=== PATIENT | female | born 1985 | race Caucasian/White ===

== ENCOUNTER 2018-08-17 23:38 | Inpatient (IN) | payer BC, OTHER ==
[2018-08-18] MEDS ORDERED: PIPER-TAZO 3.375 GM IV (PMX) 100 ML (00:54)
[2018-08-18] MEDS: DEXTROSE 5%-0.45% NACL 1,000 ML IV ×3 (00:57→16:02)
[2018-08-18] MEDS: PIPER-TAZO 3.375 GM IV (PMX) 100 ML IVPB ×5 (00:57→23:28)
[2018-08-18] MEDS ORDERED: morphine 2 MG INJ IV (01:00)
[2018-08-18 05:38] LABS: ADD MAN DIFF? NO
[2018-08-18 05:44] LABS: WHITE BLOOD COUNT 8.3 10^3/ul (4.8-10.8)
[2018-08-18 05:44] LABS: BASOPHIL # 0.1 10^3/ul (0.0-0.1); BASOPHILS % 0.6 % (0.0-2.0); EOSINOPHILS # 0.2 10^3/ul (0.0-0.5); EOSINOPHILS % 2.4 % (0.0-7.0); HEMATOCRIT 39.7 % (37.0-47.0); HEMOGLOBIN 13.2 g/dl (12.0-16.0); LYMPHOCYTES # 2.9 10^3/ul (0.8-2.9); LYMPHOCYTES % 34.4 % (15.0-51.0); MEAN CORPUSCULAR HEMOGLOBIN 28.5 pg (29.0-33.0); MEAN CORPUSCULAR HGB CONC 33.2 g/dl (32.0-37.0); MEAN CORPUSCULAR VOLUME 85.7 fl (82.0-101.0); MEAN PLATELET VOLUME 9.6 fl (7.4-10.4); MONOCYTE # 0.6 10^3/ul (0.3-0.9); MONOCYTES % 7.5 % (0.0-11.0); NEUTROPHIL # 4.5 10^3/ul (1.6-7.5); NEUTROPHILS % 54.7 % (39.0-77.0); PLATELET COUNT 316 10^3/UL (140-415); RED BLOOD COUNT 4.63 10^6/ul (4.20-5.40); RED CELL DISTRIBUTION WIDTH 12.6 % (11.5-14.5)
[2018-08-18 06:26] LABS: ALBUMIN/GLOBULIN RATIO 1.27; ANION GAP 12 (8-16); BILIRUBIN,TOTAL 0.3 mg/dl (0.2-1.3)
[2018-08-18 06:27] LABS: CARBON DIOXIDE 28 mmol/L (21-31); CHLORIDE 108 mmol/L (97-110); POTASSIUM 3.8 mmol/L (3.5-5.1); SODIUM 144 mmol/L (135-144)
[2018-08-18 06:28] LABS: ALANINE AMINOTRANSFERASE 28 IU/L (13-69); ALBUMIN 3.7 g/dl (3.3-4.9); ALKALINE PHOSPHATASE 78 IU/L (42-121); ASPARTATE AMINO TRANSFERASE 24 IU/L (15-46); BILIRUBIN,INDIRECT 0.3 mg/dl (0-1.1); BLOOD UREA NITROGEN 11 mg/dl (7-20); CALCIUM 8.4 mg/dl (8.4-10.2); CREATININE 0.81 mg/dl (0.44-1.00); GLUCOSE 115 mg/dl (70-220); TOTAL PROTEIN 6.6 g/dl (6.1-8.1)
[2018-08-18] MEDS ORDERED: NACL 0.9% 3 ML SYG IV (07:30)
[2018-08-18] MEDS: SOD CHLORIDE 0.9% 500 ML IV (08:49)
[2018-08-18] MEDS: FAMOTIDINE 20 MG INJ IV ×2 (08:49→20:28)
[2018-08-18] MEDS ORDERED: HYDROmorphONE 2 MG/ML SYG IV (10:00)
[2018-08-18] MEDS ORDERED: PANTOPRAZOLE 40 MG INJ IV (10:30)
[2018-08-18 10:49] LABS: LIPASE 46 U/L (23-300)
[2018-08-18] MEDS: KETOROLAC 15 MG INJ IV ×2 (11:52→20:34)
[2018-08-18 13:15] LABS: ADD UMIC YES; UR ASCORBIC ACID NEGATIVE (NEGATIVE); UR BILIRUBIN (Dip) NEGATIVE (NEGATIVE); UR BLOOD (Dip) NEGATIVE (NEGATIVE); UR CLARITY CLEAR (CLEAR); UR COLOR STRAW (YELLOW); UR GLUCOSE (Dip) NEGATIVE (NEGATIVE); UR KETONES (Dip) NEGATIVE (NEGATIVE); UR LEUKOCYTE ESTERASE (Dip) 1+ Leu/ul (NEGATIVE); UR NITRITE (Dip) NEGATIVE (NEGATIVE); UR RBC 1 /HPF (0-5); UR SPECIFIC GRAVITY (Dip) 1.009 (1.003-1.030); UR SQUAMOUS EPITHELIAL CELL FEW /HPF (FEW); UR TOTAL PROTEIN (Dip) NEGATIVE (NEGATIVE); UR UROBILINOGEN (Dip) NEGATIVE (NEGATIVE); UR WBC 8 /HPF (0-5)
[2018-08-19] MEDS: PIPER-TAZO 3.375 GM IV (PMX) 100 ML IVPB ×4 (05:05→23:57)
[2018-08-19] MEDS: DEXTROSE 5%-0.45% NACL 1,000 ML IV ×2 (05:05→16:12)
[2018-08-19 06:07] LABS: ADD MAN DIFF? NO
[2018-08-19 06:14] LABS: WHITE BLOOD COUNT 6.6 10^3/ul (4.8-10.8)
[2018-08-19 06:14] LABS: BASOPHIL # 0.1 10^3/ul (0.0-0.1); BASOPHILS % 0.9 % (0.0-2.0); EOSINOPHILS # 0.3 10^3/ul (0.0-0.5); EOSINOPHILS % 3.9 % (0.0-7.0); HEMATOCRIT 35.9 % (37.0-47.0); LYMPHOCYTES # 2.7 10^3/ul (0.8-2.9); LYMPHOCYTES % 40.8 % (15.0-51.0); MEAN CORPUSCULAR HEMOGLOBIN 28.4 pg (29.0-33.0); MEAN CORPUSCULAR HGB CONC 33.4 g/dl (32.0-37.0); MEAN CORPUSCULAR VOLUME 85.1 fl (82.0-101.0); MEAN PLATELET VOLUME 9.7 fl (7.4-10.4); MONOCYTE # 0.5 10^3/ul (0.3-0.9); MONOCYTES % 7.6 % (0.0-11.0); NEUTROPHIL # 3.1 10^3/ul (1.6-7.5); NEUTROPHILS % 46.6 % (39.0-77.0); PLATELET COUNT 310 10^3/UL (140-415); RED BLOOD COUNT 4.22 10^6/ul (4.20-5.40); RED CELL DISTRIBUTION WIDTH 12.4 % (11.5-14.5)
[2018-08-19 06:37] LABS: CHOLESTEROL 114 mg/dl (100-200)
[2018-08-19 06:37] LABS: CHOL/HDL RATIO 3.5 RATIO; HDL CHOLESTEROL 32 mg/dl (34-82); LDL CHOLESTEROL,CALCULATED 55 mg/dl; TRIGLYCERIDES 134 mg/dl (0-149)
[2018-08-19 06:44] LABS: ALANINE AMINOTRANSFERASE 57 IU/L (13-69); ALBUMIN/GLOBULIN RATIO 1.03; ALKALINE PHOSPHATASE 67 IU/L (42-121); ANION GAP 11 (8-16); ASPARTATE AMINO TRANSFERASE 39 IU/L (15-46); BILIRUBIN,INDIRECT 0.7 mg/dl (0-1.1); BILIRUBIN,TOTAL 0.7 mg/dl (0.2-1.3); BLOOD UREA NITROGEN 7 mg/dl (7-20); CALCIUM 8.4 mg/dl (8.4-10.2); CARBON DIOXIDE 26 mmol/L (21-31); CHLORIDE 108 mmol/L (97-110); CREATININE 0.83 mg/dl (0.44-1.00); GLUCOSE 100 mg/dl (70-220); MAGNESIUM 2.2 mg/dl (1.7-2.5); PHOSPHORUS 3.3 mg/dl (2.5-4.9); POTASSIUM 3.6 mmol/L (3.5-5.1); SODIUM 141 mmol/L (135-144); TOTAL PROTEIN 5.9 g/dl (6.1-8.1)
[2018-08-19 06:57] LABS: THYROID STIMULATING HORMONE 0.617 MIU/L (0.465-4.680)
[2018-08-19 06:58] LABS: HEMOGLOBIN A1C 5.7 % (0-5.9)
[2018-08-19] MEDS: KETOROLAC 15 MG INJ IV ×2 (07:46→20:08)
[2018-08-19] MEDS: FAMOTIDINE 20 MG INJ IV ×2 (08:36→21:16)
[2018-08-19 14:56] LABS: INR 0.99; PROTIME 13.2 Sec (11.9-14.9)
[2018-08-19] MEDS ORDERED: IOHEXOL 300MG/ML 30 ML BTL (17:39)
[2018-08-19] MEDS ORDERED: LIDOCAINE 2% (SDV) 5 ML INJ (18:26)
[2018-08-19] MEDS ORDERED: GLYCOPYRROLATE 0.4 MG INJ (18:26)
[2018-08-19] MEDS ORDERED: NEOSTIGMINE 3 MG/3 ML SYRINGE (18:26)
[2018-08-19] MEDS ORDERED: PROPOFOL 20 ML (18:26)
[2018-08-19] MEDS ORDERED: ROCURONIUM 50 MG INJ (18:26)
[2018-08-19] MEDS ORDERED: SUCCINYLCHOLINE CHLORIDE 100 MG/5 ML SYG IV (18:26)
[2018-08-19] MEDS ORDERED: FENTAnyl 50 MCG/ML VIAL IV ×2 (18:30)
[2018-08-19] MEDS: INDOMETHACIN 50 MG SUPP PR (18:47)
[2018-08-19] MEDS ORDERED: METOCLOPRAMIDE 10 MG INJ (19:11)
[2018-08-19] MEDS ORDERED: ONDANSETRON 4 MG INJ (19:11)
[2018-08-19] MEDS: FENTAnyl 50 MCG/ML VIAL IV ×2 (19:52→19:59)
[2018-08-19] MEDS: ONDANSETRON 4 MG INJ IV (22:55)
[2018-08-19] MEDS: KETOROLAC 30 MG INJ IV (23:57)
[2018-08-20] MEDS: DEXTROSE 5%-0.45% NACL 1,000 ML IV ×3 (03:00→20:09)
[2018-08-20] MEDS ORDERED: KETOROLAC 15 MG INJ IV (04:00)
[2018-08-20 05:13] LABS: ADD MAN DIFF? NO; BASOPHILS % 0.3 % (0.0-2.0); EOSINOPHILS # 0.1 10^3/ul (0.0-0.5); EOSINOPHILS % 0.7 % (0.0-7.0); HEMATOCRIT 39.1 % (37.0-47.0); HEMOGLOBIN 13.4 g/dl (12.0-16.0); LYMPHOCYTES # 1.7 10^3/ul (0.8-2.9); LYMPHOCYTES % 16.7 % (15.0-51.0); MEAN CORPUSCULAR HEMOGLOBIN 27.9 pg (29.0-33.0); MEAN CORPUSCULAR HGB CONC 34.3 g/dl (32.0-37.0); MEAN CORPUSCULAR VOLUME 81.5 fl (82.0-101.0); MEAN PLATELET VOLUME 9.3 fl (7.4-10.4); MONOCYTE # 0.7 10^3/ul (0.3-0.9); MONOCYTES % 6.9 % (0.0-11.0); NEUTROPHIL # 7.5 10^3/ul (1.6-7.5); NEUTROPHILS % 75.1 % (39.0-77.0); PLATELET COUNT 336 10^3/UL (140-415)
[2018-08-20 05:44] LABS: ALANINE AMINOTRANSFERASE 51 IU/L (13-69); ALBUMIN 3.8 g/dl (3.3-4.9); ALBUMIN/GLOBULIN RATIO 1.22; ALKALINE PHOSPHATASE 79 IU/L (42-121); ANION GAP 12 (8-16); ASPARTATE AMINO TRANSFERASE 36 IU/L (15-46); BILIRUBIN,INDIRECT 0.7 mg/dl (0-1.1); BILIRUBIN,TOTAL 0.7 mg/dl (0.2-1.3); CALCIUM 8.6 mg/dl (8.4-10.2); CARBON DIOXIDE 25 mmol/L (21-31); CHLORIDE 107 mmol/L (97-110); GLUCOSE 130 mg/dl (70-220); POTASSIUM 4.1 mmol/L (3.5-5.1); SODIUM 140 mmol/L (135-144); TOTAL PROTEIN 6.9 g/dl (6.1-8.1)
[2018-08-20 05:46] LABS: BLOOD UREA NITROGEN 7 mg/dl (7-20)
[2018-08-20] MEDS: KETOROLAC 30 MG INJ IV ×2 (06:14→12:30)
[2018-08-20] MEDS: PIPER-TAZO 3.375 GM IV (PMX) 100 ML IVPB ×4 (06:14→23:15)
[2018-08-20] MEDS: FISH OIL 1,000 MG CAP PO ×2 (08:37→20:07)
[2018-08-20] MEDS: FAMOTIDINE 20 MG INJ IV ×2 (08:38→20:07)
[2018-08-20] MEDS: HYDROmorphONE 1 MG/ML SYG IV (14:42)
[2018-08-20] MEDS: HYDROmorphONE 2 MG/ML SYG IV ×2 (17:35→20:35)
[2018-08-21] MEDS: HYDROmorphONE 2 MG/ML SYG IV ×6 (00:31→22:35)
[2018-08-21] MEDS: PIPER-TAZO 3.375 GM IV (PMX) 100 ML IVPB ×4 (05:06→23:35)
[2018-08-21 05:39] LABS: ADD MAN DIFF? NO
[2018-08-21 05:41] LABS: BASOPHILS % 0.2 % (0.0-2.0); EOSINOPHILS % 0.2 % (0.0-7.0); HEMATOCRIT 38.2 % (37.0-47.0); HEMOGLOBIN 12.9 g/dl (12.0-16.0); LYMPHOCYTES % 7.6 % (15.0-51.0); MEAN CORPUSCULAR HEMOGLOBIN 27.9 pg (29.0-33.0); MEAN CORPUSCULAR HGB CONC 33.8 g/dl (32.0-37.0); MEAN CORPUSCULAR VOLUME 82.7 fl (82.0-101.0); MEAN PLATELET VOLUME 9.4 fl (7.4-10.4); MONOCYTE # 0.8 10^3/ul (0.3-0.9); MONOCYTES % 6.3 % (0.0-11.0); NEUTROPHIL # 11.1 10^3/ul (1.6-7.5); NEUTROPHILS % 85.4 % (39.0-77.0); PLATELET COUNT 310 10^3/UL (140-415); RED BLOOD COUNT 4.62 10^6/ul (4.20-5.40); RED CELL DISTRIBUTION WIDTH 12.4 % (11.5-14.5)
[2018-08-21 05:41] LABS: WHITE BLOOD COUNT 12.9 10^3/ul (4.8-10.8)
[2018-08-21 06:04] LABS: ALANINE AMINOTRANSFERASE 46 IU/L (13-69); ALBUMIN 3.7 g/dl (3.3-4.9); ALBUMIN/GLOBULIN RATIO 1.19; ALKALINE PHOSPHATASE 78 IU/L (42-121); ANION GAP 11 (8-16); ASPARTATE AMINO TRANSFERASE 29 IU/L (15-46); BILIRUBIN,INDIRECT 0.6 mg/dl (0-1.1); BILIRUBIN,TOTAL 0.6 mg/dl (0.2-1.3); BLOOD UREA NITROGEN 6 mg/dl (7-20); CALCIUM 8.1 mg/dl (8.4-10.2); CARBON DIOXIDE 26 mmol/L (21-31); CHLORIDE 103 mmol/L (97-110); CREATININE 0.62 mg/dl (0.44-1.00); GLUCOSE 128 mg/dl (70-220); POTASSIUM 4.4 mmol/L (3.5-5.1); SODIUM 136 mmol/L (135-144); TOTAL PROTEIN 6.8 g/dl (6.1-8.1)
[2018-08-21] MEDS: ONDANSETRON 4 MG INJ IV (06:15)
[2018-08-21] MEDS: DEXTROSE 5%-0.45% NACL 1,000 ML IV ×2 (08:18→18:51)
[2018-08-21] MEDS: FAMOTIDINE 20 MG INJ IV ×2 (08:18→20:16)
[2018-08-21] MEDS: FISH OIL 1,000 MG CAP PO ×2 (08:18→21:00)
[2018-08-21 14:39] LABS: CANCER ANTIGEN 19-9 7.1 U/ml (0.0-37.0)
[2018-08-22] MEDS: HYDROmorphONE 2 MG/ML SYG IV ×3 (03:19→12:06)
[2018-08-22] MEDS: DEXTROSE 5%-0.45% NACL 1,000 ML IV ×2 (05:21→17:37)
[2018-08-22] MEDS: PIPER-TAZO 3.375 GM IV (PMX) 100 ML IVPB ×3 (05:30→17:37)
[2018-08-22 05:54] LABS: ADD MAN DIFF? NO
[2018-08-22 05:59] LABS: BASOPHILS % 0.1 % (0.0-2.0); EOSINOPHILS # 0.2 10^3/ul (0.0-0.5); EOSINOPHILS % 1.2 % (0.0-7.0); HEMATOCRIT 35.1 % (37.0-47.0); HEMOGLOBIN 11.7 g/dl (12.0-16.0); LYMPHOCYTES % 7.4 % (15.0-51.0); MEAN CORPUSCULAR HGB CONC 33.3 g/dl (32.0-37.0); MEAN PLATELET VOLUME 9.5 fl (7.4-10.4); MONOCYTE # 1.1 10^3/ul (0.3-0.9); MONOCYTES % 7.7 % (0.0-11.0); NEUTROPHIL # 11.5 10^3/ul (1.6-7.5); NEUTROPHILS % 83.2 % (39.0-77.0); PLATELET COUNT 267 10^3/UL (140-415); RED BLOOD COUNT 4.18 10^6/ul (4.20-5.40); RED CELL DISTRIBUTION WIDTH 12.7 % (11.5-14.5)
[2018-08-22 05:59] LABS: WHITE BLOOD COUNT 13.8 10^3/ul (4.8-10.8)
[2018-08-22 06:26] LABS: ALANINE AMINOTRANSFERASE 40 IU/L (13-69); ALBUMIN 3.2 g/dl (3.3-4.9); ALBUMIN/GLOBULIN RATIO 1.18; ALKALINE PHOSPHATASE 77 IU/L (42-121); ANION GAP 9 (8-16); ASPARTATE AMINO TRANSFERASE 22 IU/L (15-46); BILIRUBIN,INDIRECT 0.7 mg/dl (0-1.1); BILIRUBIN,TOTAL 0.7 mg/dl (0.2-1.3); BLOOD UREA NITROGEN 3 mg/dl (7-20); CARBON DIOXIDE 27 mmol/L (21-31); CHLORIDE 105 mmol/L (97-110); CREATININE 0.69 mg/dl (0.44-1.00); GLUCOSE 119 mg/dl (70-220); LIPASE 591 U/L (23-300); POTASSIUM 3.2 mmol/L (3.5-5.1); SODIUM 138 mmol/L (135-144); TOTAL PROTEIN 5.9 g/dl (6.1-8.1)
[2018-08-22] MEDS: FAMOTIDINE 20 MG INJ IV ×2 (08:33→20:30)
[2018-08-22] MEDS: FISH OIL 1,000 MG CAP PO ×2 (08:34→21:00)
[2018-08-22] MEDS: DOCUSATE SODIUM 250 MG CAP PO (14:58)
[2018-08-22] MEDS: POTASSIUM CHLORIDE (SR) 20 MEQ TAB PO (14:59)
[2018-08-22] MEDS: POTASSIUM CHLORIDE 100 ML IVPB (17:37)
[2018-08-22] MEDS: HYDROmorphONE 1 MG/ML SYG IV ×2 (20:31→23:56)
[2018-08-23] MEDS: DEXTROSE 5%-0.45% NACL 1,000 ML IV ×3 (01:00→22:55)
[2018-08-23] MEDS: HYDROmorphONE 1 MG/ML SYG IV ×4 (03:18→22:47)
[2018-08-23 05:07] LABS: ADD MAN DIFF? NO
[2018-08-23 05:09] LABS: WHITE BLOOD COUNT 14.4 10^3/ul (4.8-10.8)
[2018-08-23 05:09] LABS: BASOPHILS % 0.3 % (0.0-2.0); EOSINOPHILS # 0.2 10^3/ul (0.0-0.5); EOSINOPHILS % 1.5 % (0.0-7.0); HEMATOCRIT 33.8 % (37.0-47.0); HEMOGLOBIN 11.5 g/dl (12.0-16.0); LYMPHOCYTES # 1.7 10^3/ul (0.8-2.9); MEAN CORPUSCULAR HEMOGLOBIN 28.1 pg (29.0-33.0); MEAN CORPUSCULAR VOLUME 82.6 fl (82.0-101.0); MEAN PLATELET VOLUME 9.3 fl (7.4-10.4); MONOCYTE # 1.2 10^3/ul (0.3-0.9); NEUTROPHIL # 11.2 10^3/ul (1.6-7.5); NEUTROPHILS % 77.7 % (39.0-77.0); PLATELET COUNT 275 10^3/UL (140-415); RED BLOOD COUNT 4.09 10^6/ul (4.20-5.40); RED CELL DISTRIBUTION WIDTH 12.6 % (11.5-14.5)
[2018-08-23] MEDS: PIPER-TAZO 3.375 GM IV (PMX) 100 ML IVPB ×4 (05:35→18:00)
[2018-08-23 05:36] LABS: ALANINE AMINOTRANSFERASE 32 IU/L (13-69); ALBUMIN 3.2 g/dl (3.3-4.9); ALKALINE PHOSPHATASE 92 IU/L (42-121); ANION GAP 9 (8-16); ASPARTATE AMINO TRANSFERASE 18 IU/L (15-46); BILIRUBIN,INDIRECT 0.8 mg/dl (0-1.1); BILIRUBIN,TOTAL 0.8 mg/dl (0.2-1.3); CALCIUM 8.2 mg/dl (8.4-10.2); CARBON DIOXIDE 26 mmol/L (21-31); CHLORIDE 107 mmol/L (97-110); CREATININE 0.61 mg/dl (0.44-1.00); GLUCOSE 120 mg/dl (70-220); POTASSIUM 3.3 mmol/L (3.5-5.1); SODIUM 139 mmol/L (135-144); TOTAL PROTEIN 6.1 g/dl (6.1-8.1)
[2018-08-23 05:43] LABS: BLOOD UREA NITROGEN < 2 mg/dl (7-20)
[2018-08-23] MEDS ORDERED: LIDOCAINE 2% (SDV) 5 ML INJ (07:00)
[2018-08-23] MEDS: FISH OIL 1,000 MG CAP PO ×2 (09:00→21:00)
[2018-08-23] MEDS: DOCUSATE SODIUM 250 MG CAP PO (09:54)
[2018-08-23] MEDS: FAMOTIDINE 20 MG INJ IV ×2 (09:54→21:22)
[2018-08-23] MEDS: POTASSIUM CHLORIDE 100 ML IVPB ×2 (14:28→21:22)
[2018-08-23 15:40] LABS: LIPASE 197 U/L (23-300)
[2018-08-23] MEDS ORDERED: PROPOFOL 100 ML (18:16)
[2018-08-23] MEDS ORDERED: ROCURONIUM 50 MG INJ (18:16)
[2018-08-23] MEDS ORDERED: ACETAMINOPHEN 1000MG/100ML IV 100 ML (18:16)
[2018-08-23] MEDS: BUPIVACAINE 0.25%/EPI (SDV) 30 ML INJ (18:36)
[2018-08-23] MEDS: LIDOCAINE 1% (MDV) 20 ML INJ (18:37)
[2018-08-23] MEDS ORDERED: ONDANSETRON 4 MG INJ (18:47)
[2018-08-23] MEDS ORDERED: DEXAMETHASONE 4 MG/ML 1 ML INJ (18:47)
[2018-08-23] MEDS ORDERED: SUGAMMADEX SODIUM 200 MG/2 ML VIAL IV (19:27)
[2018-08-23] MEDS ORDERED: METOCLOPRAMIDE 10 MG INJ IV (20:00)
[2018-08-23] MEDS ORDERED: hydrALAzine 20 MG INJ IV (20:00)
[2018-08-23] MEDS ORDERED: FENTAnyl 50 MCG/ML VIAL IV ×3 (20:00)
[2018-08-23] MEDS ORDERED: HYDROmorphONE 1 MG/5 ML IV SYRINGE IV (20:00)
[2018-08-23] MEDS ORDERED: EPHEDrine SULFATE 50 MG/5 ML SYG IV (20:00)
[2018-08-23] MEDS ORDERED: OXYCODONE/ACETAMINOPHEN (5/325) TAB PO ×2 (20:00)
[2018-08-23] MEDS ORDERED: DIPHENHYDRAMINE 50 MG INJ IV (20:00)
[2018-08-23] MEDS ORDERED: ALBUTEROL 0.083% (NEB) 2.5 MG/3 ML AMP HHN (20:00)
[2018-08-23] MEDS ORDERED: MIDAZOLAM 1 MG/ML 2 ML INJ IV (20:00)
[2018-08-23] MEDS ORDERED: LABETALOL HCL 20MG INJ IV (20:00)
[2018-08-23] MEDS ORDERED: MEPERIDINE 25 MG INJ IV (20:00)
[2018-08-23] MEDS ORDERED: KETOROLAC 30 MG INJ IV (20:00)
[2018-08-23] MEDS: HYDROmorphONE 1 MG/5 ML IV SYRINGE IV ×2 (20:07→20:27)
[2018-08-23] MEDS: ONDANSETRON 4 MG INJ IV (20:19)
[2018-08-24] MEDS: PIPER-TAZO 3.375 GM IV (PMX) 100 ML IVPB ×4 (00:34→18:01)
[2018-08-24] MEDS ORDERED: HYDROmorphONE 0.5 MG/0.5 ML SYG IV (01:00)
[2018-08-24] MEDS: HYDROmorphONE 0.5 MG/0.5 ML SYG IV ×2 (01:08→03:08)
[2018-08-24] MEDS: HYDROmorphONE 1 MG/ML SYG IV (01:58)
[2018-08-24] MEDS: morphine 2 MG INJ IV ×3 (04:25→11:31)
[2018-08-24] MEDS: DEXTROSE 5%-0.45% NACL 1,000 ML IV ×2 (06:09→15:09)
[2018-08-24 06:55] LABS: ADD MAN DIFF? NO
[2018-08-24 07:04] LABS: WHITE BLOOD COUNT 12.8 10^3/ul (4.8-10.8)
[2018-08-24 07:04] LABS: BASOPHILS % 0.2 % (0.0-2.0); HEMATOCRIT 33.3 % (37.0-47.0); HEMOGLOBIN 11.3 g/dl (12.0-16.0); LYMPHOCYTES # 0.7 10^3/ul (0.8-2.9); LYMPHOCYTES % 5.8 % (15.0-51.0); MEAN CORPUSCULAR HEMOGLOBIN 28.1 pg (29.0-33.0); MEAN CORPUSCULAR HGB CONC 33.9 g/dl (32.0-37.0); MEAN CORPUSCULAR VOLUME 82.8 fl (82.0-101.0); MEAN PLATELET VOLUME 9.3 fl (7.4-10.4); MONOCYTE # 0.6 10^3/ul (0.3-0.9); MONOCYTES % 4.9 % (0.0-11.0); NEUTROPHIL # 11.3 10^3/ul (1.6-7.5); NEUTROPHILS % 88.6 % (39.0-77.0); PLATELET COUNT 327 10^3/UL (140-415); RED BLOOD COUNT 4.02 10^6/ul (4.20-5.40); RED CELL DISTRIBUTION WIDTH 12.3 % (11.5-14.5)
[2018-08-24 07:43] LABS: ALANINE AMINOTRANSFERASE 67 IU/L (13-69); ALBUMIN 2.9 g/dl (3.3-4.9); ALKALINE PHOSPHATASE 103 IU/L (42-121); AMYLASE 50 U/L (11-123); ANION GAP 12 (8-16); ASPARTATE AMINO TRANSFERASE 54 IU/L (15-46); BILIRUBIN,INDIRECT 0.5 mg/dl (0-1.1); BILIRUBIN,TOTAL 0.5 mg/dl (0.2-1.3); BLOOD UREA NITROGEN 3 mg/dl (7-20); CALCIUM 8.6 mg/dl (8.4-10.2); CARBON DIOXIDE 25 mmol/L (21-31); CHLORIDE 106 mmol/L (97-110); CREATININE 0.56 mg/dl (0.44-1.00); GLUCOSE 155 mg/dl (70-220); POTASSIUM 3.7 mmol/L (3.5-5.1); SODIUM 139 mmol/L (135-144); TOTAL PROTEIN 6.1 g/dl (6.1-8.1)
[2018-08-24 07:44] LABS: LIPASE 52 U/L (23-300)
[2018-08-24] MEDS: FISH OIL 1,000 MG CAP PO ×2 (08:01→21:33)
[2018-08-24] MEDS: FAMOTIDINE 20 MG INJ IV ×2 (08:02→21:33)
[2018-08-24] MEDS: DOCUSATE SODIUM 250 MG CAP PO (08:02)
[2018-08-24] MEDS: ACETAMINOPHEN 1000MG/100ML IV 100 ML IVPB ×2 (15:09→21:32)
[2018-08-24] MEDS: HYDROCODONE/APAP (5/325) TAB PO (18:02)
[2018-08-25] MEDS: PIPER-TAZO 3.375 GM IV (PMX) 100 ML IVPB ×5 (00:12→23:49)
[2018-08-25] MEDS: HYDROCODONE/APAP (5/325) TAB PO ×2 (03:38→09:56)
[2018-08-25] MEDS: ACETAMINOPHEN 1000MG/100ML IV 100 ML IVPB ×2 (05:05→14:43)
[2018-08-25 06:22] LABS: ADD MAN DIFF? NO
[2018-08-25 06:32] LABS: BASOPHIL # 0.1 10^3/ul (0.0-0.1); BASOPHILS % 0.6 % (0.0-2.0); EOSINOPHILS # 0.3 10^3/ul (0.0-0.5); EOSINOPHILS % 2.7 % (0.0-7.0); HEMATOCRIT 33.7 % (37.0-47.0); HEMOGLOBIN 11.4 g/dl (12.0-16.0); LYMPHOCYTES % 18.8 % (15.0-51.0); MEAN CORPUSCULAR HGB CONC 33.8 g/dl (32.0-37.0); MEAN CORPUSCULAR VOLUME 82.8 fl (82.0-101.0); MEAN PLATELET VOLUME 9.2 fl (7.4-10.4); MONOCYTE # 0.9 10^3/ul (0.3-0.9); MONOCYTES % 8.2 % (0.0-11.0); NEUTROPHIL # 7.5 10^3/ul (1.6-7.5); NEUTROPHILS % 69.4 % (39.0-77.0); PLATELET COUNT 350 10^3/UL (140-415); RED BLOOD COUNT 4.07 10^6/ul (4.20-5.40); RED CELL DISTRIBUTION WIDTH 12.6 % (11.5-14.5)
[2018-08-25 06:32] LABS: WHITE BLOOD COUNT 10.8 10^3/ul (4.8-10.8)
[2018-08-25 07:09] LABS: ANION GAP 9 (8-16); BLOOD UREA NITROGEN 5 mg/dl (7-20); CALCIUM 8.3 mg/dl (8.4-10.2); CARBON DIOXIDE 28 mmol/L (21-31); CHLORIDE 105 mmol/L (97-110); CREATININE 0.67 mg/dl (0.44-1.00); GLUCOSE 121 mg/dl (70-220); POTASSIUM 3.2 mmol/L (3.5-5.1); SODIUM 139 mmol/L (135-144)
[2018-08-25] MEDS: FISH OIL 1,000 MG CAP PO ×2 (08:23→22:07)
[2018-08-25] MEDS: FAMOTIDINE 20 MG INJ IV ×2 (08:23→22:07)
[2018-08-25] MEDS: DOCUSATE SODIUM 250 MG CAP PO (08:28)
[2018-08-25 11:03] LABS: ALANINE AMINOTRANSFERASE 54 IU/L (13-69); ALBUMIN 3.2 g/dl (3.3-4.9); ALKALINE PHOSPHATASE 101 IU/L (42-121); AMYLASE 76 U/L (11-123); ASPARTATE AMINO TRANSFERASE 39 IU/L (15-46); BILIRUBIN,INDIRECT 0.2 mg/dl (0-1.1); BILIRUBIN,TOTAL 0.2 mg/dl (0.2-1.3); LIPASE 245 U/L (23-300); TOTAL PROTEIN 6.2 g/dl (6.1-8.1)
[2018-08-25] MEDS: POLYETHYLENE GLYCOL 17 GM PACKET PO (12:52)
[2018-08-25] MEDS: POTASSIUM CHLORIDE (SR) 20 MEQ TAB PO ×2 (12:52→14:44)
[2018-08-25] MEDS: traMADol 50 MG TAB PO ×2 (16:16→22:07)
[2018-08-26] MEDS: traMADol 50 MG TAB PO ×3 (02:54→15:00)
[2018-08-26] MEDS: PIPER-TAZO 3.375 GM IV (PMX) 100 ML IVPB ×2 (05:11→12:59)
[2018-08-26] MEDS: KETOROLAC 30 MG INJ IV (05:14)
[2018-08-26 05:58] LABS: LIPASE 357 U/L (23-300)
[2018-08-26 05:58] LABS: AMYLASE 96 U/L (11-123)
[2018-08-26] MEDS: POLYETHYLENE GLYCOL 17 GM PACKET PO (08:49)
[2018-08-26] MEDS: FISH OIL 1,000 MG CAP PO (08:49)
[2018-08-26] MEDS: FAMOTIDINE 20 MG INJ IV (08:49)
[2018-08-26] MEDS: DOCUSATE SODIUM 250 MG CAP PO (08:49)
== END 2018-08-26 16:14 | disposition home health service (06) | DRG 417 ==
LOC: PP2 23:38
PROC: 0FD98ZX Extraction of Common Bile Duct, Via Natural or Artificial Opening Endoscopic, Diagnostic (ICD-10-PCS; 2018-08-19 18:00)
PROC: 0F798DZ Dilation of Common Bile Duct with Intraluminal Device, Via Natural or Artificial Opening Endoscopic (ICD-10-PCS; 2018-08-19 18:00)
PROC: 0FT44ZZ Resection of Gallbladder, Percutaneous Endoscopic Approach (ICD-10-PCS; principal; 2018-08-19 18:23)
PROC: 0FB04ZX Excision of Liver, Percutaneous Endoscopic Approach, Diagnostic (ICD-10-PCS; 2018-08-19 18:23)
PROC: BF13YZZ Fluoroscopy of Gallbladder and Bile Ducts using Other Contrast (ICD-10-PCS; 2018-08-19 18:23)
DX: K80.63 Calculus of gallbladder and bile duct with acute cholecystitis with obstruction (principal); K85.10 Biliary acute pancreatitis without necrosis or infection; N39.0 Urinary tract infection, site not specified; E66.9 Obesity, unspecified; R19.8 Other specified symptoms and signs involving the digestive system and abdomen; K29.70 Gastritis, unspecified, without bleeding; K76.0 Fatty (change of) liver, not elsewhere classified; Z68.35 Body mass index [BMI] 35.0-35.9, adult
CPT/HCPCS: 74181; 74330; 80048; 80053; 80061; 80076; 81001; 82150; 83036; 83690; 83735; 84100; 84443; 84703; 85025; 85610; 86301; 87086; 88104; 88304; 88305; 88307; 88313